=== PATIENT | male | born 1970 | race Caucasian/White ===

== ENCOUNTER 2023-03-09 08:23 | Day surgery (SDC) | payer OTHER ==
[2023-03-08 11:24] VITALS: BMI 23.6
[2023-03-09] MEDS ORDERED: PROPOFOL 40 ML ONE (09:57)
[2023-03-09] MEDS ORDERED: PROPOFOL 20 ML ONE (10:41)
== END 2023-03-09 11:20 | disposition home or self-care (01) ==
LOC: CSHSDC 08:23
PROVIDERS: ATTEND Internal Medicine Gastroenterology
PROC: 0DJD8ZZ Inspection of Lower Intestinal Tract, Via Natural or Artificial Opening Endoscopic (ICD-10-PCS; principal; 2023-03-09)
DX: Z12.11 Encounter for screening for malignant neoplasm of colon (principal); K64.8 Other hemorrhoids; I10 Essential (primary) hypertension; M19.90 Unspecified osteoarthritis, unspecified site; Z79.899 Other long term (current) drug therapy
CPT/HCPCS: J2704